=== PATIENT | male | born 2000 | race Hispanic/Latino ===

== ENCOUNTER 2020-04-11 00:48 | Emergency (ER) | payer BC ==
[2020-04-11] MEDS ORDERED: METOCLOPRAMIDE 10 MG/2 ML VIAL ONE (01:34)
[2020-04-11] MEDS ORDERED: SODIUM CHLORIDE 0.9% 1000ML 2,000 ML IV ONE (01:34)
[2020-04-11] MEDS ORDERED: ONDANSETRON HCL 4 MG/2 ML VIAL ONE (01:34)
[2020-04-11] MEDS ORDERED: KETOROLAC TROMETHAMINE 30MG/ML ONE (01:34)
== END 2020-04-11 03:23 | disposition home or self-care (01) ==
LOC: EDH 00:48
DX: E86.9 Volume depletion, unspecified (principal); R11.2 Nausea with vomiting, unspecified; G43.909 Migraine, unspecified, not intractable, without status migrainosus; F31.9 Bipolar disorder, unspecified; F41.9 Anxiety disorder, unspecified; M41.9 Scoliosis, unspecified
CPT/HCPCS: 96361; 96374; 96375; 99284; J1885; J2405; J2765; J7030